=== PATIENT | female | born 1985 | race Two or more races ===

== ENCOUNTER 2017-10-14 07:08 | Emergency (ER) | payer BC ==
[~2017-10-14] VITALS: Ht 157.5 cm; Wt 79.5 kg
[2017-10-14 07:12] VITALS: Ht 157.5 cm; Wt 79.5 kg
[2017-10-14 07:36] LABS: COLOR YELLOW (YELLOW)
[2017-10-14 07:37] LABS: APPEARANCE CLEAR (CLEAR); BILIRUBIN NEGATIVE (NEGATIVE); GLUCOSE NEGATIVE (NEGATIVE); KETONE NEGATIVE (NEGATIVE); NITRITE NEGATIVE (NEGATIVE); PROTEIN NEGATIVE (NEGATIVE); SPECIFIC GRAVITY 1.015 (1.005-1.020); UROBILINOGEN NORMAL (NORMAL)
[2017-10-14] MEDS ORDERED: NAPROSYN500 MG PO (08:00)
[2017-10-14] MEDS ORDERED: CYCLOBENZAPRINE10 MG PO (08:00)
[2017-10-14 08:54] VITALS: BP 121/74
== END 2017-10-14 08:54 | disposition home or self-care (01) ==
LOC: D.ER 07:08
PROVIDERS: Family Medicine
DX: S39.012A Strain of muscle, fascia and tendon of lower back, initial encounter (principal); X58.XXXA Exposure to other specified factors, initial encounter; Y93.89 Activity, other specified; Y92.019 Unspecified place in single-family (private) house as the place of occurrence of the external cause; M25.512 Pain in left shoulder; M25.511 Pain in right shoulder

== ENCOUNTER → 2017-10-19 13:30 | Outpatient (CLI) | payer BC ==
[2017-10-14 07:12] VITALS: BMI 32.1
[~2017-10-19 13:30] MED LIST: CYCLOBENZAPRINE10 MG PO; NAPROSYN500 MG PO
[2017-10-19 14:23] LABS: HCG URINE NEGATIVE (NEGATIVE)
== END | disposition home or self-care (01) ==
LOC: D.RAD 13:30
PROVIDERS: Nurse Practitioner Family
DX: M99.01 Segmental and somatic dysfunction of cervical region (principal); S12.601A Unspecified nondisplaced fracture of seventh cervical vertebra, initial encounter for closed fracture; X58.XXXA Exposure to other specified factors, initial encounter

== ENCOUNTER → 2019-01-24 14:57 | Outpatient (CLI) | payer BC ==
[2017-10-14 07:12] VITALS: BMI 32.1
== END | disposition home or self-care (01) ==
LOC: D.RAD 14:57
PROVIDERS: ATTEND Emergency Medicine
DX: M54.5 Low back pain (principal)

== ENCOUNTER 2019-10-13 00:13 | Emergency (ER) | payer BC ==
[~2019-10-13] VITALS: Ht 157.5 cm; Wt 90.7 kg
[2019-10-13 00:20] VITALS: BP 142/66; Ht 157.5 cm; Wt 90.7 kg
[2019-10-13] MEDS ORDERED: ULTRAM50 MG PO (00:21)
[2019-10-13] MEDS ORDERED: VIT D (00:22)
[2019-10-13] MEDS ORDERED: IBUPROFEN800 MG PO (00:22)
[2019-10-13 00:51] LABS: BASOPHILS 0.1 % (0-2); EOSINOPHILS 1.3 % (0-7); HEMATOCRIT 34.7 % (36.0-48.0); HEMOGLOBIN 11.1 g/dL (12-16); IMMATURE GRANULOCYTES 0.1 % (0-5); LYMPHOCYTES 44.2 % (15-50); MCH 27.6 pg (26.0-34.0); MCV 86.3 fL (80.0-100.0); MEAN PLATELET VOLUME 10.4 fL (7.4-10.4); MONOCYTES 8.2 % (2-11); NEUTROPHILS 46.1 % (40-80); PLATELET COUNT 281 10x3/uL (130-400); RBC 4.02 10x6/uL (4.00-5.40); WBC 7.9 10x3/uL (4.8-10.8)
[2019-10-13 00:54] LABS: HCG URINE NEGATIVE (NEGATIVE)
[2019-10-13 00:55] LABS: BILIRUBIN NEGATIVE (NEGATIVE); GLUCOSE NEGATIVE (NEGATIVE); KETONE NEGATIVE (NEGATIVE); NITRITE NEGATIVE (NEGATIVE); UROBILINOGEN NORMAL (NORMAL)
[2019-10-13 00:56] LABS: BACTERIA FEW /hpf (NEGATIVE); EPITHELIAL CELLS 0-5 /hpf (0-5); WHITE CELLS - URINE 0-5 /hpf (NEGATIVE)
[2019-10-13 00:59] LABS: CALC OSMOLALITY 271 mosm/kg (275-300); CALCIUM 8.7 mg/dL (8.5-10.1); CARBON DIOXIDE 28.6 mmol/L (21.0-32.0); CHLORIDE - SERUM 104 mmol/L (98-107); CREATININE - SERUM 0.9 mg/dL (0.6-1.3); GLUCOSE 88 mg/dL (74-106); POTASSIUM - SERUM 3.9 mmol/L (3.5-5.1); SODIUM 136 mmol/L (136-145); UREA NITROGEN 15 mg/dL (7-18); eGFR NON AFRICAN AMERICAN 76 mL/min (90-120)
[2019-10-13 01:07] LABS: APTT 26.9 SECONDS (22.8-39.4); INR 0.96 (0.85-1.17); PROTIME 12.8 SECONDS (11.6-15.0)
[2019-10-13] MEDS ORDERED: PROVERA10 MG PO (01:08)
[2019-10-13 01:11] LABS: ALBUMIN 3.7 g/dL (3.4-5.0); ALKALINE PHOSPHATASE 77 U/L (30-120); ALT (SGPT) 22 U/L (10-68); BILIRUBIN - TOTAL 0.09 mg/dL (0.2-1.3); C-REACTIVE PROTEIN 0.9 mg/dL (0.0-0.9); HCG - QUANTITATIVE (MATERNAL) 1 mIU/mL; PROTEIN - SERUM 7.6 g/dL (6.4-8.2)
== END 2019-10-13 02:31 | disposition home or self-care (01) ==
LOC: D.ER 00:13
PROVIDERS: Family Medicine
DX: N93.9 Abnormal uterine and vaginal bleeding, unspecified (principal)

== ENCOUNTER 2020-08-16 11:10 | Emergency (ER) | payer BC ==
[~2020-08-16] VITALS: Ht 157.5 cm; Wt 95.0 kg
[~2020-08-16 11:10] MED LIST changes: +IBUPROFEN800 MG PO; +PREDNISONE20 MG PO; +PROVERA10 MG PO; +ULTRAM50 MG PO; +VIT D
[2020-08-16 11:22] VITALS: BP 129/84; Ht 157.5 cm; Wt 95.0 kg
[2020-08-16] MEDS ORDERED: HYDROCODON-ACE1 EAC7 PO (13:43)
== END 2020-08-16 14:27 | disposition home or self-care (01) ==
LOC: D.ER 11:10
DX: S22.019A Unspecified fracture of first thoracic vertebra, initial encounter for closed fracture (principal); X58.XXXA Exposure to other specified factors, initial encounter